=== PATIENT | male | born 1980 | race Caucasian/White ===

== ENCOUNTER 2018-06-09 19:50 | Emergency (ER) | payer OTHER ==
[~2018-06-09] VITALS: Ht 182.9 cm; Wt 80.0 kg
[~2018-06-09 19:50] MED LIST: NO HOME MEDS; ZOF4T PO
[2018-06-09 19:58] VITALS: BP 135/85
--- NOTE | 2018-06-09 21:51 | NUR ---
Call placed to number on file after attempting to Rm 3 times. Left message expressing concern for Pt.'s wellbeing and encouraged him to return for Eval. informed.
== END 2018-06-09 21:52 | disposition left against medical advice (07) ==
LOC: ER 19:52
DX: R42 Dizziness and giddiness (principal); Z53.21 Procedure and treatment not carried out due to patient leaving prior to being seen by health care provider; Z98.890 Other specified postprocedural states
CPT/HCPCS: 93005; 99281; 99283

== ENCOUNTER 2018-06-13 03:09 | Emergency (ER) | payer OTHER ==
[~2018-06-13] VITALS: Ht 182.9 cm; Wt 62.5 kg
[2018-06-13 03:25] VITALS: BP 172/113
[2018-06-13] MEDS ORDERED: ondansetron 4mg rapidly disintigrating tab PO ONE (03:45)
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
== END 2018-06-13 04:13 | disposition left against medical advice (07) ==
LOC: ER 03:10
DX: E86.0 Dehydration (principal); R11.2 Nausea with vomiting, unspecified; F17.210 Nicotine dependence, cigarettes, uncomplicated; F11.90 Opioid use, unspecified, uncomplicated; Z86.19 Personal history of other infectious and parasitic diseases; Z56.0 Unemployment, unspecified; Z79.899 Other long term (current) drug therapy
CPT/HCPCS: 99281

== ENCOUNTER 2018-07-30 12:40 | Emergency (ER) | payer OTHER ==
[~2018-07-30] VITALS: Ht 182.9 cm; Wt 78.6 kg
[2018-07-30] MEDS: aspirin 81mg tab.chew PO ONE ×2 (13:25→13:43)
[2018-07-30] MEDS ORDERED: iohexol 350MG/ML 100ml bottle IV ONE (13:37)
[2018-07-30 13:50] LABS: PARTIAL THROMBOPLASTIN TIME 28 SECONDS (22-32)
--- NOTE | 2018-07-30 13:55 | NUR ---
PT STATES EPIGASTRIC PAIN 6/10 PT OK WITH TYLENOL # 3 OR NORCO BUT NO MORPHINE OR DILAUDID, WILL NOTIFY PROVIDER.
[2018-07-30 14:02] LABS: ALANINE AMINOTRANSFERASE 66 U/L (12-78); ALBUMIN 4.8 G/DL (3.4-5.0); ALBUMIN/GLOBULIN RATIO 1.3 (1.1-1.5); ALKALINE PHOSPHATASE 63 IU/L (46-116); ANION GAP 10 (8-16); ASPARTATE AMINO TRANSFERASE 47 U/L (10-37); BILIRUBIN,TOTAL 1.1 MG/DL (0.1-1.0); BLOOD UREA NITROGEN 12 MG/DL (7-18); BUN/CREATININE RATIO 13.6 (5.4-32.0); CALCIUM 9.8 MG/DL (8.5-10.1); CHLORIDE 101 MMOL/L (99-107); CREATININE 0.88 MG/DL (0.60-1.10); GLUCOSE 118 MG/DL (70-104); POTASSIUM 3.3 MMOL/L (3.5-5.1); SODIUM 138 MMOL/L (135-145); TOTAL CARBON DIOXIDE 26.8 MMOL/L (24-32); TOTAL PROTEIN 8.6 G/DL (6.4-8.2); eGFR > 90 ML/MIN
[2018-07-30 14:05] LABS: BASOPHILS % (AUTO) 0.5 % (0-1); EOSINOPHILS % (AUTO) 0.6 % (0-6); HEMOGLOBIN 17.2 g/dl (14.0-17.9); LYMPHOCYTES # (AUTO) 1.5 X10'3 (1.1-4.8); LYMPHOCYTES % (AUTO) 21.7 % (21-51); MEAN CORPUSCULAR HEMOGLOBIN 30.2 PG (27.0-31.0); MEAN CORPUSCULAR HGB CONC 35.8 g/dL (33.0-36.5); MEAN CORPUSCULAR VOLUME 84.4 FL (78-98); MEAN PLATELET VOLUME 8.3 FL (7.4-10.4); MONOCYTES # (AUTO) 0.5 X10'3 (0-0.9); MONOCYTES % (AUTO) 7.4 % (2-12); NEUTROPHILS # (AUTO) 4.7 X10'3 (1.8-7.7); NEUTROPHILS % (AUTO) 69.8 % (42-75); PLATELET COUNT 224 X10'3 (140-440); RED BLOOD COUNT 5.68 X10'6 (4.70-6.10); RED CELL DISTRIBUTION WIDTH 13.1 % (11.5-14.5); WHITE BLOOD COUNT 6.7 X10'3 (4.5-11.0)
[2018-07-30] MEDS ORDERED: furosemide 10 MG/1 ML 10ml inj IV ONE (14:15)
[2018-07-30] MEDS ORDERED: enoxaparin 100mg/ml syringe SUBCUT ONE (14:15)
[2018-07-30] MEDS ORDERED: nitroGLYCERIN 1gm ointment UD TP ONE (14:15)
[2018-07-30 14:19] LABS: URINE AMPHETAMINE SCREEN POSITIVE (Neg); URINE BARBITUATE SCREEN NEGATIVE (Neg); URINE BENZODIAZEPINES SCREEN NEGATIVE (Neg); URINE CANNABINOID SCREEN NEGATIVE (Neg); URINE COCAINE SCREEN NEGATIVE (Neg); URINE METHADONE SCREEN NEGATIVE (Neg); URINE OPIATE SCREEN NEGATIVE (Neg); URINE PHENCYCLIDINE SCREEN NEGATIVE (Neg)
[2018-07-30] MEDS ORDERED: LORazepam 2 mg/ml vial IV ONE (14:20)
[2018-07-30] MEDS ORDERED: famotidine/PF 10 mg/ml inj IV ONE (14:20)
--- NOTE | 2018-07-30 14:40 | NUR ---
discussed pt medications ordered, per chelsi BRYANT hold lovenox and lasix per CTA results, nitro, pepcid and ativan to be administered per orders
[2018-07-30] MEDS ORDERED: normal saline 1000ML IV soln IVB ONE (15:10)
[2018-07-30] MEDS ORDERED: cloNIDine 0.1 mg tablet PO ONE (15:55)
[2018-07-30] MEDS ORDERED: acetaminophen 325mg tablet PO ONE (16:30)
[2018-07-30 17:05] VITALS: BP 153/92
== END 2018-07-30 17:06 ==
LOC: EEVIPCON 12:40 → ER 12:40
DX: R07.89 Other chest pain (principal); F15.159 Other stimulant abuse with stimulant-induced psychotic disorder, unspecified; R00.0 Tachycardia, unspecified; F11.90 Opioid use, unspecified, uncomplicated; Z86.19 Personal history of other infectious and parasitic diseases; Z56.0 Unemployment, unspecified; Z79.899 Other long term (current) drug therapy
CPT/HCPCS: 36415; 71045; 71275; 80053; 80305; 83880; 84484; 85025; 85610; 85730; 93005; 96374; 96375; 99291; J2060; J3490; J7030; Q9967

== ENCOUNTER 2018-08-21 09:16 | Emergency (ER) | payer OTHER ==
[~2018-08-21] VITALS: Ht 177.8 cm; Wt 80.0 kg
[2018-08-21 09:16] VITALS: BP 128/97
== END 2018-08-21 09:40 | disposition home or self-care (01) ==
LOC: ER 09:16
DX: R07.89 Other chest pain (principal); F11.10 Opioid abuse, uncomplicated; F15.90 Other stimulant use, unspecified, uncomplicated; F60.0 Paranoid personality disorder; F19.10 Other psychoactive substance abuse, uncomplicated; Z86.19 Personal history of other infectious and parasitic diseases; Z56.0 Unemployment, unspecified; Z79.899 Other long term (current) drug therapy
CPT/HCPCS: 93005; 99283; 99284

== ENCOUNTER 2018-08-27 10:30 | Emergency (ER) | payer SELFPAY | END 2018-08-27 10:45 | disposition left against medical advice (07) | LOC: ER 10:31 | DX: R45.1 Restlessness and agitation (principal); F22 Delusional disorders; F15.90 Other stimulant use, unspecified, uncomplicated; F11.90 Opioid use, unspecified, uncomplicated; F17.210 Nicotine dependence, cigarettes, uncomplicated; Z56.0 Unemployment, unspecified | CPT/HCPCS: 99283 ==

== ENCOUNTER 2018-08-27 17:25 | Emergency (ER) | payer SELFPAY ==
[~2018-08-27] VITALS: Ht 182.9 cm; Wt 79.5 kg
[2018-08-27 17:56] VITALS: BP 119/76
--- NOTE | 2018-08-27 18:41 | NUR ---
pt to x ray with security
== END 2018-08-27 18:55 | disposition home or self-care (01) ==
LOC: ER 17:26
DX: S60.221A Contusion of right hand, initial encounter (principal); M25.552 Pain in left hip; B35.3 Tinea pedis; F15.90 Other stimulant use, unspecified, uncomplicated; F11.90 Opioid use, unspecified, uncomplicated; Z56.0 Unemployment, unspecified; Y04.0XXA Assault by unarmed brawl or fight, initial encounter; Y93.89 Activity, other specified; Y92.89 Other specified places as the place of occurrence of the external cause; Y99.9 Unspecified external cause status
CPT/HCPCS: 73130; 73502; 99284

== ENCOUNTER 2018-09-06 14:38 | Emergency (ER) | payer MEDICAID ==
[~2018-09-06] VITALS: Ht 182.9 cm; Wt 70.5 kg
[2018-09-06 14:44] VITALS: BP 165/114
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
[2018-09-06] MEDS ORDERED: normal saline 1000ML IV soln IVB ONE (15:15)
[2018-09-06] MEDS ORDERED: LORazepam 2 mg/ml vial IV ONE (15:15)
--- NOTE | 2018-09-06 15:52 | NUR ---
NURSE WENT TO PULL IV ATIVAN FOR PT, AND WHILE GONE HE PULLED OUT HIS IV. STATED THAT HE DIDN'T PULL IT OUT. AWARE.
[2018-09-06 16:14] LABS: BASOPHILS # (AUTO) 0.1 X10'3 (0-0.2); BASOPHILS % (AUTO) 0.4 % (0-1); EOSINOPHILS % (AUTO) 0.2 % (0-6); HEMATOCRIT 42.8 % (42.0-52.0); HEMOGLOBIN 14.8 g/dl (14.0-17.9); LYMPHOCYTES # (AUTO) 1.5 X10'3 (1.1-4.8); LYMPHOCYTES % (AUTO) 12.1 % (21-51); MEAN CORPUSCULAR HGB CONC 34.7 g/dL (33.0-36.5); MEAN CORPUSCULAR VOLUME 86.6 FL (78-98); MEAN PLATELET VOLUME 7.3 FL (7.4-10.4); MONOCYTES # (AUTO) 0.8 X10'3 (0-0.9); MONOCYTES % (AUTO) 6.6 % (2-12); NEUTROPHILS # (AUTO) 10.1 X10'3 (1.8-7.7); NEUTROPHILS % (AUTO) 80.7 % (42-75); PLATELET COUNT 396 X10'3 (140-440); RED BLOOD COUNT 4.94 X10'6 (4.70-6.10); RED CELL DISTRIBUTION WIDTH 13.2 % (11.5-14.5); WHITE BLOOD COUNT 12.6 X10'3 (4.5-11.0)
[2018-09-06 16:16] LABS: ALANINE AMINOTRANSFERASE 72 U/L (12-78); ALBUMIN 3.8 G/DL (3.4-5.0); ALKALINE PHOSPHATASE 74 IU/L (46-116); ANION GAP 9 (8-16); ASPARTATE AMINO TRANSFERASE 46 U/L (10-37); BILIRUBIN,TOTAL 0.7 MG/DL (0.1-1.0); BLOOD UREA NITROGEN 20 MG/DL (7-18); CALCIUM 9.1 MG/DL (8.5-10.1); CHLORIDE 105 MMOL/L (99-107); CREATININE 0.91 MG/DL (0.60-1.10); ETHANOL < 0.010 GM/DL (0.0-0.010); GLUCOSE 122 MG/DL (70-104); POTASSIUM 3.8 MMOL/L (3.5-5.1); SODIUM 140 MMOL/L (135-145); TOTAL CARBON DIOXIDE 25.9 MMOL/L (24-32); TOTAL PROTEIN 7.6 G/DL (6.4-8.2); eGFR > 90 ML/MIN
[2018-09-06] MEDS ORDERED: HYDROcodone/acetaminophen 5mg/325mg tablet PO ONE (17:15)
[2018-09-06] MEDS ORDERED: AMOX-422 PO (17:16)
[2018-09-06] MEDS ORDERED: TRAM50TA2 PO (17:16)
== END 2018-09-06 17:37 | disposition home or self-care (01) ==
LOC: ER 14:39
DX: R10.13 Epigastric pain (principal); R45.1 Restlessness and agitation; L03.113 Cellulitis of right upper limb; R41.82 Altered mental status, unspecified; F10.99 Alcohol use, unspecified with unspecified alcohol-induced disorder; F15.90 Other stimulant use, unspecified, uncomplicated; F11.90 Opioid use, unspecified, uncomplicated; Z86.19 Personal history of other infectious and parasitic diseases; Z56.0 Unemployment, unspecified; Z79.899 Other long term (current) drug therapy; Y90.9 Presence of alcohol in blood, level not specified
CPT/HCPCS: 36415; 80053; 80320; 85025; 96361; 96374; 99284; J2060; J7030

== ENCOUNTER 2018-09-07 23:42 | Emergency (ER) | payer MEDICAID ==
[~2018-09-07] VITALS: Ht 182.9 cm; Wt 68.2 kg
[~2018-09-07 23:42] MED LIST changes: +AMOX-422 PO; +TRAM50TA2 PO
[2018-09-07 23:46] VITALS: BP 130/90
--- NOTE | 2018-09-08 02:11 | NUR ---
pt left immediately after being seen by doctor. pt would not sign forms.
== END 2018-09-08 00:10 | disposition left against medical advice (07) ==
LOC: ER 23:43
DX: L03.113 Cellulitis of right upper limb (principal); R07.89 Other chest pain; F15.90 Other stimulant use, unspecified, uncomplicated; F11.90 Opioid use, unspecified, uncomplicated; F10.99 Alcohol use, unspecified with unspecified alcohol-induced disorder; Z86.19 Personal history of other infectious and parasitic diseases; Z56.0 Unemployment, unspecified; Z79.899 Other long term (current) drug therapy; Y90.9 Presence of alcohol in blood, level not specified
CPT/HCPCS: 99283

== ENCOUNTER 2018-09-10 16:17 | Emergency (ER) | payer MEDICAID, OTHER ==
[~2018-09-10] VITALS: Ht 182.9 cm; Wt 71.9 kg
[2018-09-10] MEDS ORDERED: CefTRIAXone 2gm/D5W 50ml 50 ML IV ONE (16:40)
[2018-09-10] MEDS ORDERED: normal saline 1000ML IV soln IV ONE (16:40)
[2018-09-10 17:13] LABS: BASOPHILS # (AUTO) 0.1 X10'3 (0-0.2); BASOPHILS % (AUTO) 0.7 % (0-1); EOSINOPHILS # (AUTO) 0.1 X10'3 (0-0.9); EOSINOPHILS % (AUTO) 1.6 % (0-6); HEMATOCRIT 40.8 % (42.0-52.0); HEMOGLOBIN 13.9 g/dl (14.0-17.9); LYMPHOCYTES # (AUTO) 1.4 X10'3 (1.1-4.8); LYMPHOCYTES % (AUTO) 18.7 % (21-51); MEAN CORPUSCULAR HGB CONC 34.2 g/dL (33.0-36.5); MEAN CORPUSCULAR VOLUME 87.8 FL (78-98); MEAN PLATELET VOLUME 7.5 FL (7.4-10.4); MONOCYTES # (AUTO) 0.5 X10'3 (0-0.9); MONOCYTES % (AUTO) 6.4 % (2-12); NEUTROPHILS # (AUTO) 5.5 X10'3 (1.8-7.7); NEUTROPHILS % (AUTO) 72.6 % (42-75); PLATELET COUNT 332 X10'3 (140-440); RED BLOOD COUNT 4.64 X10'6 (4.70-6.10); RED CELL DISTRIBUTION WIDTH 13.4 % (11.5-14.5); WHITE BLOOD COUNT 7.6 X10'3 (4.5-11.0)
[2018-09-10 17:25] LABS: ALANINE AMINOTRANSFERASE 54 U/L (12-78); ALBUMIN 3.2 G/DL (3.4-5.0); ALBUMIN/GLOBULIN RATIO 0.8 (1.1-1.5); ALKALINE PHOSPHATASE 72 IU/L (46-116); ANION GAP 9 (8-16); ASPARTATE AMINO TRANSFERASE 35 U/L (10-37); BILIRUBIN,TOTAL 0.5 MG/DL (0.1-1.0); BLOOD UREA NITROGEN 15 MG/DL (7-18); BUN/CREATININE RATIO 18.5 (5.4-32.0); CALCIUM 8.7 MG/DL (8.5-10.1); CHLORIDE 104 MMOL/L (99-107); CREATININE 0.81 MG/DL (0.60-1.10); GLUCOSE 117 MG/DL (70-104); POTASSIUM 3.4 MMOL/L (3.5-5.1); SODIUM 140 MMOL/L (135-145); TOTAL CARBON DIOXIDE 26.8 MMOL/L (24-32); eGFR > 90 ML/MIN
[2018-09-10 17:46] VITALS: BP 132/99
[2018-09-10] MEDS ORDERED: HYDROcodone/acetaminophen 10/325mg tab PO ONE (17:50)
[2018-09-10] MEDS ORDERED: HYDR-4383 PO (17:51)
[2018-09-10] MEDS ORDERED: CEPH-571 PO (17:51)
[2018-09-10] MEDS ORDERED: DOXY100C43 PO (17:51)
[2018-09-10] MEDS ORDERED: CLOT15CR73 TP (17:58)
--- NOTE | 2018-09-10 18:50 | NUR ---
informed felicitas gagnon that pt was not able to urinate as per paits fine he is good to discharge.
== END 2018-09-10 18:56 | disposition home or self-care (01) ==
LOC: ER 16:18
DX: L03.113 Cellulitis of right upper limb (principal); B35.3 Tinea pedis; M79.671 Pain in right foot; M79.672 Pain in left foot; F15.90 Other stimulant use, unspecified, uncomplicated; F11.90 Opioid use, unspecified, uncomplicated; Z56.0 Unemployment, unspecified; Z86.19 Personal history of other infectious and parasitic diseases; Z79.2 Long term (current) use of antibiotics; Z79.899 Other long term (current) drug therapy
CPT/HCPCS: 36415; 73130; 80053; 82948; 83605; 84145; 85025; 87040; 93971; 96365; 96366; 99284; J0696; J7030; J7040

== ENCOUNTER 2020-04-06 10:48 | Emergency (ER) | payer MEDICAID ==
[~2020-04-06] VITALS: Ht 182.9 cm; Wt 79.5 kg
[~2020-04-06 10:48] MED LIST changes: -AMOX-422 PO; +CEPH-571 PO; +HYDR-4383 PO; -TRAM50TA2 PO
[2020-04-06] MEDS ORDERED: LIDOcaine 1% W/epiNEPHrine 1:200,000 10ml vial IJ ONE (10:55)
[2020-04-06] MEDS ORDERED: TETanus/Pertussis (Acell)/Diphther VAC/PF (Tdap-Adult) 0.5ml syringe IMVAC ONE (10:55)
[2020-04-06] MEDS ORDERED: bacitracin 15gm ointment TP ONE (11:30)
[2020-04-06] MEDS ORDERED: SULF1TAB49 PO (11:44)
[2020-04-06] MEDS ORDERED: CEPH-585 PO (11:44)
[2020-04-06] MEDS ORDERED: niCARDipine-NS 40mg/200ml IVPB 200 ML IV ONE (11:55)
[2020-04-06] MEDS ORDERED: ondansetron/PF 4mg/2ml inj IV ONE (12:25)
[2020-04-06] MEDS ORDERED: fentaNYL/PF 50MCG/1 ML 2ML syringe IV ONE (12:25)
[2020-04-06] MEDS ORDERED: levetiracetam-NS 1000mg/100ml 100 ML IV ONE (12:30)
[2020-04-06] MEDS: labetalol 20mg/4ml (5mg/ml) syringe IV ONE ×2 (12:47→12:54)
[2020-04-06 12:55] VITALS: BP 135/87
[2020-04-06 13:05] LABS: CLARITY,URINE SLIGHTLY CLOUDY (Clear); COLOR,URINE AMBER (Yellow); GLUCOSE, URINE NEGATIVE (Neg); KETONES,URINE NEGATIVE (Neg); LEUKOCYTE ESTERASE ,URINE NEGATIVE (Neg); OCCULT BLOOD,URINE NEGATIVE (Neg); PROTEIN,URINE TRACE mg/dl (Neg)
[2020-04-06 13:07] LABS: UA COLLECTION TYPE VOIDED
[2020-04-06 13:08] LABS: NITRITES, URINE NEGATIVE (Neg)
[2020-04-06 13:09] LABS: URINE AMPHETAMINE SCREEN POSITIVE (Neg); URINE BARBITUATE SCREEN NEGATIVE (Neg); URINE BENZODIAZEPINES SCREEN NEGATIVE (Neg); URINE CANNABINOID SCREEN POSITIVE (Neg); URINE COCAINE SCREEN NEGATIVE (Neg); URINE METHADONE SCREEN POSITIVE (Neg); URINE OPIATE SCREEN POSITIVE (Neg); URINE PHENCYCLIDINE SCREEN NEGATIVE (Neg)
[2020-04-06 13:11] LABS: COARSE GRANULAR CAST 0-3 /LPF (NEGATIVE); HYALINE CASTS 0-3 /LPF (NEGATIVE); MUCUS STRANDS MANY /LPF (Neg); SQUAMOUS EPITHELIAL CELL,UR FEW /LPF (FEW); TRANSITIONAL EPI CELLS,URINE FEW /HPF
[2020-04-06 13:12] LABS: BACTERIA,URINE FEW /HPF (Neg); RBC,URINE 0-2 /HPF (0-2); WBC,URINE 0-4 /HPF (0-4)
[2020-04-06 13:13] LABS: AMORPHOUS URATES 1+
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
== END 2020-04-06 12:58 | disposition short-term general hospital (02) ==
LOC: ER 10:48
DX: S06.0X0A Concussion without loss of consciousness, initial encounter (principal); S06.5X0A Traumatic subdural hemorrhage without loss of consciousness, initial encounter; Z20.822 Contact with and (suspected) exposure to COVID-19; S81.801A Unspecified open wound, right lower leg, initial encounter; R07.89 Other chest pain; I16.1 Hypertensive emergency; F15.90 Other stimulant use, unspecified, uncomplicated; F11.90 Opioid use, unspecified, uncomplicated; Z72.89 Other problems related to lifestyle; Z86.19 Personal history of other infectious and parasitic diseases; Z56.0 Unemployment, unspecified; Z79.899 Other long term (current) drug therapy; X95.02XA Assault by paintball gun discharge, initial encounter; Y93.89 Activity, other specified; Y92.89 Other specified places as the place of occurrence of the external cause; Y99.8 Other external cause status
CPT/HCPCS: 70450; 73590; 80305; 81001; 82948; 87635; 90471; 90715; 96365; 96368; 96375; 99291; C9803; J1953; J2405; J3010; 99285; J3490

== ENCOUNTER 2020-04-16 12:04 | Emergency (ER) | payer MEDICAID ==
[~2020-04-16] VITALS: Ht 182.9 cm; Wt 77.3 kg
[2020-04-16] MEDS ORDERED: HYDROcodone/acetaminophen 5mg/325mg tablet PO ONE (12:45)
[2020-04-16] MEDS ORDERED: ondansetron 4mg rapidly disintigrating tab PO ONE (12:45)
[2020-04-16] MEDS ORDERED: sulfamethoxazole/trimethoprim DS (800/160mg) tablet PO ONE (13:05)
--- NOTE | 2020-04-16 14:21 | NUR ---
PT RELEASED FROM OFFICER CUSTODY
[2020-04-16 14:30] VITALS: BP 139/87
[2020-04-16] MEDS ORDERED: SULF1TAB45 PO (14:39)
== END 2020-04-16 14:50 ==
LOC: ER 12:04
DX: S06.2X0D Diffuse traumatic brain injury without loss of consciousness, subsequent encounter (principal); L08.9 Local infection of the skin and subcutaneous tissue, unspecified; M79.661 Pain in right lower leg; G93.6 Cerebral edema; F15.90 Other stimulant use, unspecified, uncomplicated; F11.90 Opioid use, unspecified, uncomplicated; Z86.19 Personal history of other infectious and parasitic diseases; Z56.0 Unemployment, unspecified; Z72.89 Other problems related to lifestyle; Z79.899 Other long term (current) drug therapy; Y08.89XD Assault by other specified means, subsequent encounter
CPT/HCPCS: 70450; 99284

== ENCOUNTER 2020-05-24 10:38 | Emergency (ER) | payer MEDICAID ==
[~2020-05-24] VITALS: Ht 182.9 cm; Wt 81.8 kg
[2020-05-24 10:59] VITALS: BP 160/93
[2020-05-24] MEDS ORDERED: SULF1TAB49 PO (11:10)
[2020-05-24] MEDS ORDERED: CEPH-585 PO (11:10)
[2020-05-24] MEDS ORDERED: cephalexin 250mg capsule PO ONE (11:10)
[2020-05-24] MEDS ORDERED: sulfamethoxazole/trimethoprim DS (800/160mg) tablet PO ONE (11:10)
== END 2020-05-24 18:35 | disposition home or self-care (01) ==
LOC: ER 10:38
DX: L08.89 Other specified local infections of the skin and subcutaneous tissue (principal); F15.90 Other stimulant use, unspecified, uncomplicated; F11.90 Opioid use, unspecified, uncomplicated; Z56.0 Unemployment, unspecified; Z87.820 Personal history of traumatic brain injury
CPT/HCPCS: 99283

== ENCOUNTER 2023-03-14 01:12 | Emergency (ER) | payer MEDICAID ==
[~2023-03-14] VITALS: Ht 182.9 cm; Wt 75.0 kg
[2023-03-14 01:20] VITALS: BP_DIAS 126; RESP 18; TEMP 98.4; O2SAT 99
[2023-03-14] MEDS ORDERED: cephalexin 250mg capsule PO ONE (01:40)
[2023-03-14] MEDS ORDERED: ondansetron 4mg rapidly disintigrating tab PO ONE (01:40)
[2023-03-14] MEDS ORDERED: amLODIPine 5mg tablet PO ONE (01:40)
[2023-03-14] MEDS ORDERED: lisinopril 10 MG tablet PO ONE (01:40)
[2023-03-14] MEDS ORDERED: CEPH-585 PO (01:41)
[2023-03-14] MEDS ORDERED: LISI40TA13 PO (01:41)
[2023-03-14] MEDS ORDERED: AMLO5TAB5 PO (01:41)
[2023-03-14 01:46] VITALS: BP_SYST 191; PULSE 115
== END 2023-03-14 02:01 | disposition home or self-care (01) ==
LOC: ER 01:13
DX: I10 Essential (primary) hypertension (principal); L03.115 Cellulitis of right lower limb; F15.90 Other stimulant use, unspecified, uncomplicated; Z72.89 Other problems related to lifestyle; F11.90 Opioid use, unspecified, uncomplicated; Z56.0 Unemployment, unspecified
CPT/HCPCS: 99284

== ENCOUNTER 2023-03-14 03:48 | Emergency (ER) | payer MEDICAID ==
[~2023-03-14] VITALS: Ht 180.3 cm; Wt 72.7 kg
[~2023-03-14 03:48] MED LIST changes: +AMLO5TAB5 PO; +CEPH-585 PO; +LISI40TA13 PO
[2023-03-14] MEDS ORDERED: aspirin 81mg tab.chew PO ONE (04:00)
[2023-03-14] MEDS ORDERED: normal saline 1000ml 1,000 ML IV ONE (04:10)
[2023-03-14 04:35] VITALS: BP 174/122; RESP 16; TEMP 98.6; O2SAT 97
[2023-03-14 04:38] LABS: MONOCYTES # (AUTO) 0.3 X10'3 (0-0.9)
[2023-03-14 04:39] VITALS: PULSE 104
[2023-03-14 04:40] LABS: BASOPHILS % (AUTO) 0.7 % (0-1); EOSINOPHILS % (AUTO) 0.1 % (0-6); HEMATOCRIT 40.1 % (42.0-52.0); HEMOGLOBIN 13.8 g/dl (14.0-17.9); LYMPHOCYTES # (AUTO) 0.8 X10'3 (1.1-4.8); LYMPHOCYTES % (AUTO) 15.7 % (21-51); MEAN CORPUSCULAR HEMOGLOBIN 27.5 PG (27.0-31.0); MEAN CORPUSCULAR HGB CONC 34.4 g/dL (33.0-36.5); MEAN CORPUSCULAR VOLUME 80.1 FL (78-98); MEAN PLATELET VOLUME 7.1 FL (7.4-10.4); MONOCYTES % (AUTO) 5.3 % (2-12); NEUTROPHILS # (AUTO) 3.9 X10'3 (1.8-7.7); NEUTROPHILS % (AUTO) 78.2 % (42-75); PLATELET COUNT 286 X10'3 (140-440); RED BLOOD COUNT 5.01 X10'6 (4.70-6.10); RED CELL DISTRIBUTION WIDTH 13.5 % (11.5-14.5)
[2023-03-14 04:55] LABS: ALBUMIN 3.3 G/DL (3.4-5.0); ANION GAP 4 (8-16); BLOOD UREA NITROGEN 10 MG/DL (7-18); BUN/CREATININE RATIO 12.2 (10.0-20.0); CALCIUM 8.9 MG/DL (8.5-10.1); CHLORIDE 103 MMOL/L (99-107); CREATININE 0.82 MG/DL (0.60-1.10); GLUCOSE 147 MG/DL (70-104); PRO BRAIN NATRIURETIC PEPTIDE 137 PG/ML (0-125); SODIUM 139 MMOL/L (135-145); TOTAL CARBON DIOXIDE 31.7 MMOL/L (24-32); eCRCL 123 ML/MIN; eGFR > 90 ML/MIN
[2023-03-14] MEDS ORDERED: potassium Cl 20 mEq SR tablet PO STA (05:00)
== END 2023-03-14 05:36 | disposition home or self-care (01) ==
LOC: ER 03:49
DX: E87.6 Hypokalemia (principal); R07.89 Other chest pain; F15.90 Other stimulant use, unspecified, uncomplicated; F19.90 Other psychoactive substance use, unspecified, uncomplicated
CPT/HCPCS: 71045; 80048; 83735; 83880; 84484; 85025; 93005; 96360; 99285; J7030

== ENCOUNTER 2023-06-04 23:38 | Inpatient (IN) | payer MEDICAID ==
[~2023-06-04] VITALS: Ht 185.4 cm; Wt 77.4 kg
[~2023-06-04 23:38] MED LIST changes: -CEPH-585 PO; -LISI40TA13 PO; +calcium chloride 100 MG/1 ML inj IV ONE
[2023-06-04 23:51] VITALS: BP 54/28; PULSE 83; RESP 15; O2SAT 92
[2023-06-05] VITALS (32 sets, daily range): BP systolic 99–139; BP diastolic 42–95; PULSE 64–100; RESP 19–39; O2SAT 99–100
[2023-06-05 00:14] LABS: ABG BASE EXCESS -21.8 mmol/L (-2.0-2.0); ABG HCO3 16.4 mmol/L (22.0-26.0); ABG PCO2 (T) 122.4 mmHg (35.0-48.0); ABG PH (T) 6.723 (7.340-7.440); ABG PO2 (T) 55.3 mmHg (75.0-100.0); FCOHb 0.5 % (0.0-3.9); FHHb 21.8 % (0.0-5.0); FMetHb 0.2 % (0.0-1.5); FO2Hb 77.5 % (94-97); MODE VENT - AC; PATIENT TEMPERATURE 34.6; PEEP 5 cm H2O; RESPIRATORY RATE 15 b/min; TIDAL VOLUME 450 mL; TOTAL HEMOGLOBIN 12.6 G/dl (14.0-17.9)
[2023-06-05] MEDS: normal saline 1000ML IV soln IV ONE (00:16)
[2023-06-05 00:19] LABS: BASOPHILS # (AUTO) 0.1 X10'3 (0-0.2); BASOPHILS % (AUTO) 1.2 % (0-1); EOSINOPHILS % (AUTO) 0.2 % (0-6); HEMATOCRIT 39.6 % (42.0-52.0); LYMPHOCYTES % (AUTO) 27.9 % (21-51); MEAN CORPUSCULAR HEMOGLOBIN 29.9 PG (27.0-31.0); MEAN CORPUSCULAR HGB CONC 32.8 g/dL (33.0-36.5); MEAN CORPUSCULAR VOLUME 91.2 FL (78-98); MEAN PLATELET VOLUME 7.9 FL (7.4-10.4); MONOCYTES # (AUTO) 0.4 X10'3 (0-0.9); MONOCYTES % (AUTO) 6.1 % (2-12); NEUTROPHILS # (AUTO) 4.6 X10'3 (1.8-7.7); NEUTROPHILS % (AUTO) 64.6 % (42-75); PLATELET COUNT 302 X10'3 (140-440); RED BLOOD COUNT 4.35 X10'6 (4.70-6.10); WHITE BLOOD COUNT 7.1 X10'3 (4.5-11.0)
[2023-06-05 00:35] LABS: ALBUMIN 1.7 G/DL (3.4-5.0); ANION GAP 20 (8-16); BLOOD UREA NITROGEN 15 MG/DL (7-18); BUN/CREATININE RATIO 6.3 (10.0-20.0); CALCIUM 9.7 MG/DL (8.5-10.1); CHLORIDE 106 MMOL/L (99-107); ETHANOL < 10 MG/DL (<10); GLUCOSE 212 MG/DL (70-104); SODIUM 150 MMOL/L (135-145); TOTAL CARBON DIOXIDE 24.3 MMOL/L (24-32); eCRCL 45 ML/MIN; eGFR 30 ML/MIN
[2023-06-05 00:38] LABS: POTASSIUM 5.1 MMOL/L (3.5-5.1)
[2023-06-05 00:43] LABS: BILIRUBIN,URINE NEGATIVE (Neg); CLARITY,URINE SLIGHTLY CLOUDY (Clear); COLOR,URINE YELLOW (Yellow); GLUCOSE, URINE NEGATIVE (Neg); KETONES,URINE NEGATIVE (Neg); LEUKOCYTE ESTERASE ,URINE NEGATIVE (Neg); NITRITES, URINE NEGATIVE (Neg); OCCULT BLOOD,URINE NEGATIVE (Neg); PROTEIN,URINE 30 mg/dl (Neg); UROBILINOGEN,URINE >=8.0 E.U/dL (0.2-1.0)
[2023-06-05 00:50] LABS: UA COLLECTION TYPE FOLEY CATH
[2023-06-05 00:52] LABS: BACTERIA,URINE FEW /HPF (Neg); SQUAMOUS EPITHELIAL CELL,UR FEW /LPF (FEW); TRANSITIONAL EPI CELLS,URINE FEW /HPF
[2023-06-05 00:53] LABS: FINE GRANULAR CAST 0-3 /LPF (NEGATIVE); SPERM MANY /HPF (NEGATIVE)
[2023-06-05 01:04] LABS: URINE AMPHETAMINE SCREEN POSITIVE (Neg); URINE BARBITUATE SCREEN NEGATIVE (Neg); URINE BENZODIAZEPINES SCREEN NEGATIVE (Neg); URINE CANNABINOID SCREEN POSITIVE (Neg); URINE COCAINE SCREEN NEGATIVE (Neg); URINE METHADONE SCREEN NEGATIVE (Neg); URINE OPIATE SCREEN POSITIVE (Neg); URINE PHENCYCLIDINE SCREEN NEGATIVE (Neg)
[2023-06-05] MEDS ORDERED: propofol 1000mg/100ml bottle 100 ML IV SCH (01:15)
[2023-06-05] MEDS: propofol 1000mg/100ml bottle 100 ML IV SCH ×2 (01:25→13:40)
[2023-06-05] MEDS: NORepinephrine 8mg/ 250ml NS 250 ML IV SCH (02:00)
[2023-06-05] MEDS: CefTRIAXone/D5W-Rocephin 1gm 50 ML IV ONE (02:06)
[2023-06-05] MEDS: meperidine/PF 50mg/ml syringe IV ONE (02:06)
[2023-06-05] MEDS ORDERED: magnesium hydroxide 30ml (MOM) UD suspension PO PRN (02:30)
[2023-06-05] MEDS ORDERED: magnesium 4gm in 100ml NS 100 ML IV PRN (02:30)
[2023-06-05] MEDS ORDERED: magnesium 2GM in 50ml NS 50 ML IV PRN (02:30)
[2023-06-05] MEDS ORDERED: ondansetron/PF 4mg/2ml inj IV PRN (02:30)
[2023-06-05] MEDS ORDERED: acetaminophen 325mg tablet PO PRN (02:30)
[2023-06-05] MEDS ORDERED: potassium Cl 40MEQ/1/2NS 520ml 520 ML IV PRN (02:30)
[2023-06-05] MEDS ORDERED: potassium Cl 20 mEq SR tablet PO PRN ×2 (02:30)
[2023-06-05] MEDS ORDERED: magnesium Cl slow-release 64mg tablet PO PRN (02:30)
[2023-06-05] MEDS ORDERED: normal saline 500ml IV soln 500 ML IV PRN (02:50)
[2023-06-05] MEDS: sodium chloride 0.45% 1,000 ML IV ONE (03:01)
[2023-06-05 03:11] LABS: ALBUMIN 2.3 G/DL (3.4-5.0); ANION GAP 23 (8-16); BLOOD UREA NITROGEN 19 MG/DL (7-18); BUN/CREATININE RATIO 8.5 (10.0-20.0); CALCIUM 7.6 MG/DL (8.5-10.1); CHLORIDE 109 MMOL/L (99-107); CREATININE 2.23 MG/DL (0.60-1.10); GLUCOSE 55 MG/DL (70-104); SODIUM 150 MMOL/L (135-145); eCRCL 49 ML/MIN; eGFR 33 ML/MIN
[2023-06-05 03:22] LABS: POTASSIUM 4.7 MMOL/L (3.5-5.1)
[2023-06-05] MEDS ORDERED: dextrose 50%-water 50ml dispensing syringe IV PRN (03:25)
[2023-06-05] MEDS ORDERED: DEXTROSE 15 GM of carb/4 tabs (each vial/BOTTLE has 4 tablets) PO PRN ×2 (03:25)
[2023-06-05] MEDS ORDERED: glucagon, human recombinant 1mg kit SUBCUT PRN (03:25)
[2023-06-05] MEDS: dextrose 50%-water 50ml dispensing syringe IV PRN (03:50)
[2023-06-05 07:28] LABS: ABG BASE EXCESS -11.6 mmol/L (-2.0-2.0); ABG HCO3 13.5 mmol/L (22.0-26.0); ABG OXYGEN SATURATION 99.4 % (94-97); ABG PH (T) 7.295 (7.340-7.440); ABG PO2 (T) 211.3 mmHg (75.0-100.0); ALLEN'S TEST POSITIVE; FCOHb 0.3 % (0.0-3.9); FHHb 0.6 % (0.0-5.0); FMetHb 0.1 % (0.0-1.5); MODE VENT - AC; PATIENT TEMPERATURE 35.5; PEEP 8 cm H2O; RESPIRATORY RATE 22 b/min; TIDAL VOLUME 450 mL; TOTAL HEMOGLOBIN 17.4 G/dl (14.0-17.9)
[2023-06-05 07:54] LABS: PHOSPHORUS 7.7 MG/DL (2.3-4.5)
[2023-06-05] MEDS ORDERED: docusate sod 100mg capsule PO SCH (08:00)
[2023-06-05] MEDS: K and/or MAG REPLACEMENT MC SCH (08:29)
[2023-06-05] MEDS: pantoprazole 40 MG vial IV SCH (08:33)
[2023-06-05] MEDS: piperacillin/tazo 3.375gm/50ml 50 ML IV SCH (08:33)
[2023-06-05] MEDS: clindamycin 600mg/D5W 50ml 50 ML IV SCH (10:43)
[2023-06-05] MEDS: levoFLOXACIN-Levaquin 750MG/D5 150 ML IV SCH (10:43)
[2023-06-05] MEDS: aspirin 81mg tab.chew OGT SCH (10:54)
[2023-06-05 10:59] LABS: BASOPHILS % (AUTO) 0.3 % (0-1); EOSINOPHILS # (AUTO) 0.1 X10'3 (0-0.9); EOSINOPHILS % (AUTO) 1.1 % (0-6); HEMATOCRIT 48.7 % (42.0-52.0); HEMOGLOBIN 16.8 g/dl (14.0-17.9); LYMPHOCYTES # (AUTO) 0.4 X10'3 (1.1-4.8); LYMPHOCYTES % (AUTO) 6.7 % (21-51); MEAN CORPUSCULAR HEMOGLOBIN 30.2 PG (27.0-31.0); MEAN CORPUSCULAR HGB CONC 34.6 g/dL (33.0-36.5); MEAN CORPUSCULAR VOLUME 87.2 FL (78-98); MONOCYTES # (AUTO) 0.2 X10'3 (0-0.9); MONOCYTES % (AUTO) 3.8 % (2-12); NEUTROPHILS # (AUTO) 5.7 X10'3 (1.8-7.7); NEUTROPHILS % (AUTO) 88.1 % (42-75); PLATELET COUNT 241 X10'3 (140-440); RED BLOOD COUNT 5.59 X10'6 (4.70-6.10); RED CELL DISTRIBUTION WIDTH 16.5 % (11.5-14.5); WHITE BLOOD COUNT 6.5 X10'3 (4.5-11.0)
[2023-06-05] MEDS ORDERED: UNABLE TO OBTAIN (10:59)
[2023-06-05 11:12] LABS: INR 1.3 INR
[2023-06-05 11:39] LABS: ABG BASE EXCESS -9.2 mmol/L (-2.0-2.0); ABG HCO3 15.3 mmol/L (22.0-26.0); ABG OXYGEN SATURATION 97.7 % (94-97); ABG PH (T) 7.335 (7.340-7.440); ABG PO2 (T) 88.5 mmHg (75.0-100.0); ALLEN'S TEST Yes; FCOHb 0.7 % (0.0-3.9); FHHb 2.3 % (0.0-5.0); FMetHb 0.3 % (0.0-1.5); FO2Hb 96.7 % (94-97); MODE VENT - AC; PEEP 8 cm H2O; TIDAL VOLUME 450 mL; TOTAL HEMOGLOBIN 16.9 G/dl (14.0-17.9)
[2023-06-05] MEDS: heparin 10,000 units/1 ML INJ IV ONE (11:52)
[2023-06-05] MEDS: heparin 25,000 UNIT/250ml bag 250 ML IV PRN (11:53)
[2023-06-05] MEDS: MESSAGE TO NURSING IV ONE ×2 (12:41→19:47)
[2023-06-06] VITALS (37 sets, daily range): BP systolic 108–157; BP diastolic 70–97; PULSE 94–104; RESP 18–27; O2SAT 99–100
[2023-06-06 01:45] LABS: BASOPHILS % (AUTO) 0.2 % (0-1); EOSINOPHILS % (AUTO) 0.1 % (0-6); HEMOGLOBIN 15.5 g/dl (14.0-17.9); LYMPHOCYTES # (AUTO) 0.5 X10'3 (1.1-4.8); LYMPHOCYTES % (AUTO) 3.8 % (21-51); MEAN CORPUSCULAR HEMOGLOBIN 29.5 PG (27.0-31.0); MEAN CORPUSCULAR HGB CONC 34.5 g/dL (33.0-36.5); MEAN CORPUSCULAR VOLUME 85.6 FL (78-98); MEAN PLATELET VOLUME 8.3 FL (7.4-10.4); MONOCYTES # (AUTO) 0.5 X10'3 (0-0.9); MONOCYTES % (AUTO) 3.9 % (2-12); NEUTROPHILS # (AUTO) 12.5 X10'3 (1.8-7.7); PLATELET COUNT 159 X10'3 (140-440); RED BLOOD COUNT 5.26 X10'6 (4.70-6.10); RED CELL DISTRIBUTION WIDTH 16.8 % (11.5-14.5); WHITE BLOOD COUNT 13.6 X10'3 (4.5-11.0)
[2023-06-06 02:07] LABS: ALBUMIN/GLOBULIN RATIO 0.7 (1.1-1.5); ALKALINE PHOSPHATASE 76 IU/L (46-116); ANION GAP 13 (8-16); BILIRUBIN,TOTAL 3.3 MG/DL (0.1-1.0); BLOOD UREA NITROGEN 50 MG/DL (7-18); BUN/CREATININE RATIO 19.4 (10.0-20.0); CALCIUM 6.2 MG/DL (8.5-10.1); CHLORIDE 108 MMOL/L (99-107); CREATININE 2.58 MG/DL (0.60-1.10); GLUCOSE 133 MG/DL (70-104); MAGNESIUM 1.6 MG/DL (1.5-2.4); PHOSPHORUS 5.1 MG/DL (2.3-4.5); POTASSIUM 4.2 MMOL/L (3.5-5.1); SODIUM 145 MMOL/L (135-145); TOTAL CARBON DIOXIDE 23.9 MMOL/L (24-32); eCRCL 42 ML/MIN; eGFR 28 ML/MIN
[2023-06-06 02:08] LABS: ALANINE AMINOTRANSFERASE 2521 U/L (12-78)
[2023-06-06] MEDS: MESSAGE TO NURSING IV ONE ×4 (02:15→21:14)
[2023-06-06 03:31] LABS: ASPARTATE AMINO TRANSFERASE 5929 U/L (10-37)
[2023-06-06 03:56] LABS: ABG BASE EXCESS -3.4 mmol/L (-2.0-2.0); ABG HCO3 19.9 mmol/L (22.0-26.0); ABG OXYGEN SATURATION 98.4 % (94-97); ABG PCO2 (T) 29.9 mmHg (35.0-48.0); ABG PH (T) 7.435 (7.340-7.440); ABG PO2 (T) 120.6 mmHg (75.0-100.0); ALLEN'S TEST POSITIVE; FCOHb 0.7 % (0.0-3.9); FHHb 1.6 % (0.0-5.0); FMetHb 0.1 % (0.0-1.5); FO2Hb 97.6 % (94-97); MODE VENT - AC; PATIENT TEMPERATURE 35.7; PEEP 5 cm H2O; RESPIRATORY RATE 22 b/min; TIDAL VOLUME 450 mL; TOTAL HEMOGLOBIN 16.2 G/dl (14.0-17.9)
[2023-06-06 03:57] LABS: ANISOCYTOSIS 1+; BURR CELLS 1+; PLATELET ESTIMATE NORMAL; TOTAL CELLS COUNTED 100
[2023-06-06] MEDS: mineral oil/petrolatum ophthal oint EACHEYE SCH (07:47)
[2023-06-06] MEDS ORDERED: rocuronium 10mg/ml inj IV ONE (08:00)
[2023-06-06] MEDS ORDERED: DEXTROSE 15 GM of carb/4 tabs (each vial/BOTTLE has 4 tablets) OGT PRN ×2 (11:43)
[2023-06-06] MEDS ORDERED: magnesium hydroxide 30ml (MOM) UD suspension OGT PRN (11:45)
[2023-06-06] MEDS ORDERED: POTASSIUM BICARB 20meq eff tab 20 MEQ TABLET.EFF OGT PRN (11:45)
[2023-06-06] MEDS ORDERED: potassium Cl 20 mEq SR tablet OGT PRN (11:45)
[2023-06-06] MEDS: heparin 25,000 UNIT/250ml bag 250 ML IV PRN (16:29)
[2023-06-06 17:17] LABS: TRIGLYCERIDES 54 MG/DL (20-135)
[2023-06-07] VITALS (35 sets, daily range): BP systolic 106–148; BP diastolic 70–102; PULSE 86–103; RESP 19–24; O2SAT 100
[2023-06-07 02:15] LABS: BASOPHILS % (AUTO) 0.3 % (0-1); EOSINOPHILS % (AUTO) 0 % (0-6); HEMATOCRIT 40.1 % (42.0-52.0); HEMOGLOBIN 13.8 g/dl (14.0-17.9); LYMPHOCYTES # (AUTO) 0.7 X10'3 (1.1-4.8); LYMPHOCYTES % (AUTO) 5.8 % (21-51); MEAN CORPUSCULAR HEMOGLOBIN 29.6 PG (27.0-31.0); MEAN CORPUSCULAR HGB CONC 34.4 g/dL (33.0-36.5); MEAN CORPUSCULAR VOLUME 86.1 FL (78-98); MEAN PLATELET VOLUME 8.3 FL (7.4-10.4); MONOCYTES # (AUTO) 0.6 X10'3 (0-0.9); MONOCYTES % (AUTO) 5.1 % (2-12); NEUTROPHILS % (AUTO) 88.8 % (42-75); PLATELET COUNT 149 X10'3 (140-440); RED BLOOD COUNT 4.66 X10'6 (4.70-6.10); RED CELL DISTRIBUTION WIDTH 17.1 % (11.5-14.5); WHITE BLOOD COUNT 12.4 X10'3 (4.5-11.0)
[2023-06-07 02:36] LABS: ALBUMIN 1.8 G/DL (3.4-5.0); ALBUMIN/GLOBULIN RATIO 0.6 (1.1-1.5); ALKALINE PHOSPHATASE 64 IU/L (46-116); ANION GAP 10 (8-16); BILIRUBIN,TOTAL 3.8 MG/DL (0.1-1.0); BLOOD UREA NITROGEN 83 MG/DL (7-18); BUN/CREATININE RATIO 21.6 (10.0-20.0); CALCIUM 6.7 MG/DL (8.5-10.1); CHLORIDE 104 MMOL/L (99-107); CREATININE 3.84 MG/DL (0.60-1.10); GLUCOSE 134 MG/DL (70-104); MAGNESIUM 1.8 MG/DL (1.5-2.4); PHOSPHORUS 4.2 MG/DL (2.3-4.5); POTASSIUM 4.2 MMOL/L (3.5-5.1); SODIUM 139 MMOL/L (135-145); TOTAL CARBON DIOXIDE 24.7 MMOL/L (24-32); eCRCL 28 ML/MIN; eGFR 18 ML/MIN
[2023-06-07 02:39] LABS: ALANINE AMINOTRANSFERASE 1363 U/L (12-78); ASPARTATE AMINO TRANSFERASE 1429 U/L (10-37)
[2023-06-07] MEDS: heparin 10,000 units/1 ML INJ IV PRN (03:24)
[2023-06-07] MEDS: MESSAGE TO NURSING IV ONE ×4 (03:30→22:57)
[2023-06-07 03:56] LABS: ABG HCO3 19.5 mmol/L (22.0-26.0); ABG OXYGEN SATURATION 97.9 % (94-97); ABG PCO2 (T) 31.1 mmHg (35.0-48.0); ABG PH (T) 7.414 (7.340-7.440); ABG PO2 (T) 100.5 mmHg (75.0-100.0); ALLEN'S TEST POSITIVE; FCOHb 1.1 % (0.0-3.9); FHHb 2.1 % (0.0-5.0); FMetHb 0.3 % (0.0-1.5); FO2Hb 96.5 % (94-97); MODE VENT - AC; PATIENT TEMPERATURE 36.9; PEEP 5 cm H2O; RESPIRATORY RATE 22 b/min; TIDAL VOLUME 450 mL; TOTAL HEMOGLOBIN 13.8 G/dl (14.0-17.9)
[2023-06-07] MEDS ORDERED: POTASSIUM BICARB 20meq eff tab 20 MEQ TABLET.EFF OGT PRN (08:07)
[2023-06-07] MEDS: ringers solution, lacted 1,000 ML IV ONE (22:56)
[2023-06-08] VITALS (29 sets, daily range): BP systolic 110–162; BP diastolic 69–107; PULSE 71–110; RESP 0–24; TEMP 98.2; O2SAT 82–100
[2023-06-08] MEDS: acetaminophen 325mg/10.15ml oral unit dose solution OGT PRN (02:06)
[2023-06-08 02:32] LABS: BASOPHILS # (AUTO) 0.1 X10'3 (0-0.2); BASOPHILS % (AUTO) 0.5 % (0-1); EOSINOPHILS % (AUTO) 0.1 % (0-6); HEMATOCRIT 36.5 % (42.0-52.0); HEMOGLOBIN 12.4 g/dl (14.0-17.9); LYMPHOCYTES # (AUTO) 0.9 X10'3 (1.1-4.8); LYMPHOCYTES % (AUTO) 7.6 % (21-51); MEAN CORPUSCULAR HEMOGLOBIN 29.2 PG (27.0-31.0); MEAN CORPUSCULAR HGB CONC 34.1 g/dL (33.0-36.5); MEAN CORPUSCULAR VOLUME 85.7 FL (78-98); MEAN PLATELET VOLUME 8.2 FL (7.4-10.4); MONOCYTES # (AUTO) 0.6 X10'3 (0-0.9); MONOCYTES % (AUTO) 4.9 % (2-12); NEUTROPHILS # (AUTO) 10.8 X10'3 (1.8-7.7); NEUTROPHILS % (AUTO) 86.9 % (42-75); PLATELET COUNT 139 X10'3 (140-440); RED BLOOD COUNT 4.25 X10'6 (4.70-6.10); WHITE BLOOD COUNT 12.5 X10'3 (4.5-11.0)
[2023-06-08 02:46] LABS: ALANINE AMINOTRANSFERASE 766 U/L (12-78); ALBUMIN 1.8 G/DL (3.4-5.0); ALBUMIN/GLOBULIN RATIO 0.5 (1.1-1.5); ALKALINE PHOSPHATASE 69 IU/L (46-116); ANION GAP 15 (8-16); ASPARTATE AMINO TRANSFERASE 449 U/L (10-37); BILIRUBIN,TOTAL 3.5 MG/DL (0.1-1.0); BLOOD UREA NITROGEN 107 MG/DL (7-18); BUN/CREATININE RATIO 19.2 (10.0-20.0); CALCIUM 7.3 MG/DL (8.5-10.1); CHLORIDE 102 MMOL/L (99-107); CREATININE 5.57 MG/DL (0.60-1.10); GLUCOSE 123 MG/DL (70-104); MAGNESIUM 2.2 MG/DL (1.5-2.4); PHOSPHORUS 4.7 MG/DL (2.3-4.5); POTASSIUM 4.1 MMOL/L (3.5-5.1); SODIUM 139 MMOL/L (135-145); TOTAL CARBON DIOXIDE 22.2 MMOL/L (24-32); TOTAL PROTEIN 5.1 G/DL (6.4-8.2); eCRCL 19 ML/MIN; eGFR 11 ML/MIN
[2023-06-08 03:24] LABS: ABG BASE EXCESS -3.7 mmol/L (-2.0-2.0); ABG HCO3 19.9 mmol/L (22.0-26.0); ABG OXYGEN SATURATION 96.6 % (94-97); ABG PCO2 (T) 31.5 mmHg (35.0-48.0); ABG PH (T) 7.418 (7.340-7.440); ABG PO2 (T) 83.2 mmHg (75.0-100.0); FCOHb 0.7 % (0.0-3.9); FHHb 3.4 % (0.0-5.0); FMetHb 0.3 % (0.0-1.5); FO2Hb 95.6 % (94-97); MODE VENT - AC; PATIENT TEMPERATURE 36.8; PEEP 5 cm H2O; RESPIRATORY RATE 22 b/min; TIDAL VOLUME 450 mL; TOTAL HEMOGLOBIN 12.8 G/dl (14.0-17.9)
[2023-06-08] MEDS: MESSAGE TO NURSING IV ONE ×2 (05:24→10:58)
[2023-06-08] MEDS: levoFLOXACIN-Levaquin 750MG/D5 150 ML IV SCH (07:37)
[2023-06-08] MEDS: morphine 10mg/ml inj. IV PRN (13:47)
== END 2023-06-08 22:30 | DRG 720 ==
LOC: ER 23:38 → ED HOLD 06-05 02:27 → EDBEDREQ 06-05 02:36 → CICU 2S 06-05 04:35 → ORTHO 4S 06-08 19:52
PROVIDERS: ADMIT Surgery Surgical Critical Care; ATTEND Surgery Surgical Critical Care
PROC: 5A1945Z Respiratory Ventilation, 24-96 Consecutive Hours (ICD-10-PCS; principal; 2023-06-05)
PROC: 0BH17EZ Insertion of Endotracheal Airway into Trachea, Via Natural or Artificial Opening (ICD-10-PCS; 2023-06-05)
PROC: 02HV33Z Insertion of Infusion Device into Superior Vena Cava, Percutaneous Approach (ICD-10-PCS; 2023-06-05)
DX: A41.9 Sepsis, unspecified organism (principal); I46.9 Cardiac arrest, cause unspecified; J69.0 Pneumonitis due to inhalation of food and vomit; N17.0 Acute kidney failure with tubular necrosis; R65.21 Severe sepsis with septic shock; J96.01 Acute respiratory failure with hypoxia; J96.02 Acute respiratory failure with hypercapnia; G93.1 Anoxic brain damage, not elsewhere classified; T50.991A Poisoning by other drugs, medicaments and biological substances, accidental (unintentional), initial encounter; I21.4 Non-ST elevation (NSTEMI) myocardial infarction; E87.0 Hyperosmolality and hypernatremia; J18.9 Pneumonia, unspecified organism; Z20.822 Contact with and (suspected) exposure to COVID-19; R68.0 Hypothermia, not associated with low environmental temperature; F19.10 Other psychoactive substance abuse, uncomplicated; F17.210 Nicotine dependence, cigarettes, uncomplicated; R73.9 Hyperglycemia, unspecified; E16.2 Hypoglycemia, unspecified; Y92.89 Other specified places as the place of occurrence of the external cause; Z79.899 Other long term (current) drug therapy
CPT/HCPCS: 36415; 36600; 70450; 71045; 80048; 80053; 80305; 80320; 81001; 82803; 82948; 83605; 83735; 84100; 84134; 84145; 84478; 84484; 85007; 85018; 85025; 85610; 85730; 87040; 87070; 87081; 87088; 87811; 93005; 93308; 94002; 94003; 94640; 94760; 94799; 99285; A4333; A4615; A5200; A6212; A6213; A6250; C9113; G0378; J0171; J0696; J1644; J1956; J2175; J2274; J2310; J2543; J2704; J3490; J7030; J7040; J7120